=== PATIENT | male | born 1955 | race Caucasian/White ===

== ENCOUNTER → 2025-02-07 10:05 | Outpatient (CLI) | payer MEDICARE, SELFPAY ==
--- NOTE | ~2025-02-07 | XR_ITS ---
EXAM/ PROCEDURE: XR hip LT min 2V - 02/07/2025 10:20 CDT HISTORY: 69 years old Male with M25.552 - Pain in left hip COMPARISON: None available TECHNIQUE: Two view(s) FINDINGS/ IMPRESSION: There are no fractures or dislocations.Joint space narrowing, subchondral sclerosis, subchondral cyst formation and osteophyte formation, compatible with moderate osteoarthritis. Reviewed, dictated and finalized at location A.
--- NOTE | ~2025-02-07 | XR_ITS ---
XR lumbar spine min 4V 02/07/2025 10:38 Indication: Low back pain. Sciatica. Procedure: 5 views lumbar spine Comparison: No prior studies for comparison. Findings: Vertebral body heights are maintained. There is facet hypertrophy at L3-4, L4-5 and L5-S1. There is grade 1 degenerative spondylolisthesis at L4-5. No fracture, subluxation or dislocation. Lev oscoliosis centered at L2-3. There is disc narrowing at L3-4 through L5-S1. Impression: 1: Moderate lumbar spondylosis. Reviewed, dictated and finalized at location A. Impression: 1: Moderate lumbar spondylosis.
--- OUTSIDE RECORDS SUMMARY | 2025-02-07 10:09 | XMS_ITS | Continuity of Care Document ---
Author Organization [facility] Address [address] [place] [address] Phone Care Team Providers Care Cash Management Clerk Name Role Phone Cristin DUBOIS MD, Saji Unavailable Unavaila ble Allergies, Adverse Reactions, Alerts Substance Reaction Status Criticality No Known Allergies Active No Inform ation Procedures Procedure Date X-ray exam knee, 4+ views Office/outpatient visit,[facility] 2022 Asp/inject major joint or bursa w/o US g uidance Kenalog 40mg/mL Advance Directives Directive Yes / No Effective Date File Name No Information Encounters Encounter Description Practice Location Reason(s) For Visit Diagnoses Date Provider Providers Copied on Encounter Office/outpat ient visit,[facility] [place] [facility], [address], [id number], [place] [phone] [facility] [facility] left knee (chief complaint) Pain in left knee 3 Cristin Jewell er. [address] [facility] [facility] [address], [place], [place], [id number] , [place]. tel: [phone] Referring Provider: Saji Amaral MD D, [address] [facility] [address], [place], [address]. tel:[phone] Family History Family Member Type Diagnosis Age At Onset Father Problem (finding) Heart Disease Mother Problem (finding) Cancer, unknown Sister Problem (finding) Cancer, unknown Immunizations Vaccine Date Status Comments influenza, injectable, quadrivalent, (3 years or older) administered Note: patient denies ; Source: Source Unspecified Payers Payer name Insurance type Covered constitution party ID Praveen Michelle (s) Medicare CI [id number] Social History Type Description Quantity Date Captured Comments Alcohol Use Details Unknown Caffeine Use Details Unknown Tobacco Use Status No Information Smoking Status Never smoker Non-Smoking Tobacco Use Details : No Details Available : No Details Available Sex Male Vital Signs Date / Time: Height [...] he was doing some box jumping, at [employer]. This aggravated his knee and he developed increased swelling. Pain is worse with walking and open chain exercises. He is also been mountain biking and fell off his bike sustaining some further damage to his knee. Pain is better with elevation ice and sldo-rig-emdojhn medication. He has been treated with bracing [...] exam knee, 4+ views LT knee ordered Appointment Anjel Rhodes ORDER MAD E BOOKED History Of Present Illness Encounter Date Complaint [...] he was doing some box jumping, at [employer]. This aggravated his knee and he developed increased swelling. Pain is worse with walking and open chain exercises. He is also been mountain biking and fell off his bike sustaining some further damage to his knee. Pain is better with elevation ice and pdyi-fof-tacglmd medication. He has been treated with bracing [...]
== END ==
PROVIDERS: PCP Family Medicine; Visit Provider Family Medicine
DX: M25.552 Pain in left hip (principal); M47.896 Other spondylosis, lumbar region
CPT/HCPCS: 72110; 73502

== ENCOUNTER 2025-05-02 09:00 | Outpatient (RCR) | payer MEDICARE, SELFPAY ==
--- NOTE | 2025-04-06 08:57 | OPREHPOC ---
Outpatient Therapy Plan of Care This is a Multidisciplinary Plan of Care that may contain components documented by all disciplines (PT, OT, and ST.) PT Problem 1 PT Problem #1 Knowledge Deficit PT Goal 1 Goal / Goal Update Patient to demonstrate independence with HEP for improved self-reliance of symptom management. Target Visit 4 PT Problem 2 PT Problem #2 Pain PT Goal 1 Goal / Goal Update Patient to decrease subjective reports of pain to <3/10 for 2 consecutive weeks for improved ADL tolerance. Target Visit 8 PT Problem 3 PT Problem #3 Impaired Strength PT Goal 1 Goal / Goal Update Patient to demonstrate L hip ABD strength >=5/5 without pain provocation for improved functional stability required for ADLs. Target Visit 8 PT Problem 4 PT Problem #4 Impaired Range of Motion PT Goal 1 Goal / Goal Update Pt to demonstrate an increase of L hip combined AROM of WFL to improve LE dressing to don/doff shoes/socks. Target Visit 8 PT Problem 5 PT Problem #5 Impaired Endurance PT Goal 1 Goal / Goal Update Patient to improve distance ambulated during 6MWT from 1350 feet to 1500 feet to demonstrate an improvement in ADL endurance. Target Visit 8
--- NOTE | 2025-04-06 08:57 | PTOPEVAL1 ---
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 Pt reports symptoms started to get worse when he moved to [place] with walking in the sand. He is now returning to [place] and was helping renovate a home. He was working 10 -14 hours a day and it got to the point he was dragging his L foot. It was giving out on him and he went to the see the MD. He received a cortisone injection 2 weeks ago and is feeling a little better. he has also cut down on his activity level . he was instructed to use a cane to off weight his joint but is not ready for that. he thinks his hip muscles are feeling weaker over the last 2 months. Sxs made worse with: L LE dressing, walking more than 1 block, squatting Sxs improved with: ice, cortisone injection, doxycycline CLOF: decreased standing and walking tolerance, L LE dressing PLOF: standing/walking >8 hrs/day, biking 10 miles Reported Pain Level Pain Score 0: Self Report Assessment PT Clinical Summary Pt is a 69 year old male who presents to physical therapy with a primary complaint of L hip pain. Pt demonstrates mild strength deficits in the L hip, pain with prolonged walking and standing, impaired lower body dressing, decreased mobility, decreased endurance, abnormal posture, gait deficit, and decreased flexibility that limit their ability to perform ADLs. Pt will benefit from skilled physical therapy to address the above listed deficits and return to PLOF. HEP instructed and written handout provided, EX tolerated well with no adverse effects to note post-session. Pt was educated on importance of adherence to HEP. Pt was also educated on anatomy, prognosis, home modalities, and PT POC. Plan of Care Interventions Aquatic Therapy,Electrical Stimulation,Gait Training,Hot Pack/Cold Pack,Manual Therapy, Mechanical Traction,Neuro Re-education,Patient/ Caregiver Education,Therapeutic Activities, Therapeutic Exercise,Self-Care/Home Management, Ultrasound PT Services Indicated Yes Treatment Frequency and 1-2x/wk for 8 sessions Duration These treatments will address the objective and functional deficits as defined above. The patient will be advanced safely and appropriately in order for the patient to progress towards his/her prior level of function. Additional exercises will be introduced and as well as a comprehensive home exercise program upon discharge, if needed, ?to ensure carryover of functional gains achieved in the clinic. This treatment plan has been reviewed and agreement upon by the patient.
--- NOTE | 2025-05-16 09:34 | PCPTNOTE ---
Patient no showed to appointment. Therapist called and left voicemail to attempt to reschedule.
== END 2025-07-05 23:59 | disposition home or self-care (01) ==
LOC: ANHGOSHPT 09:00
PROVIDERS: PCP Family Medicine; Visit Provider Orthopaedic Surgery
DX: M47.816 Spondylosis without myelopathy or radiculopathy, lumbar region (principal); M16.12 Unilateral primary osteoarthritis, left hip
CPT/HCPCS: 97110; 97140; 97161; 97530

== ENCOUNTER 2025-05-25 08:24 | Outpatient (CLI) | payer MEDICARE, SELFPAY ==
--- OUTSIDE RECORDS SUMMARY | 2023-06-08 05:45 | XMS_ITS | Continuity of Care Document ---
Author Organization [facility] Address [address] [place] [address] Phone Care Team Providers Care Registered Respiratory Therapist Name Role Phone Cristin DUBOIS MD, Saji Unavailable Unavaila ble Allergies, Adverse Reactions, Alerts Substance Reaction Status Criticality No Known Allergies Active No Inform ation Procedures Procedure Date X-ray exam knee, 4+ views Office/outpatient visit,[facility] 2022 Asp/inject major joint or bursa w/o US g uidance Kenalog 40mg/mL Advance Directives Directive Yes / No Effective Date File Name No Information Encounters Encounter Description Practice Location Reason(s) For Visit Diagnoses Date Provider Providers Copied on Encounter Office/outpat ient visit,[facility], [facility] [place] [facility] [place] [facility], [address], [id number], [place] [phone] [facility] [place] [facility] left knee (chief complaint) Pain in left knee 3 Cristin Jewell er. [address] [facility] [facility], [place], [place], [id number] , [place]. tel: [phone] Referring Provider: Saji Amaral MD D, [address] [facility] [address], [place], [address]. tel:[phone] Family History Family Member Type Diagnosis Age At Onset Father Problem (finding) Heart Disease Mother Problem (finding) Cancer, unknown Sister Problem (finding) Cancer, unknown Immunizations Vaccine Date Status Comments influenza, injectable, quadrivalent, (3 years or older) administered Note: patient denies ; Source: Source Unspecified Payers Payer name Insurance type Covered constitution party ID Praveen Michelle (s) Medicare CI [id number] Social History Type Description Quantity Date Captured Comments Alcohol Use Details Unknown Caffeine Use Details Unknown Tobacco Use Status No Information Smoking Status Never smoker Non-Smoking Tobacco Use Details : No Details Available : No Details Available Sex Male Gender Identity Male Vital Signs Date / Time: Height Weight BMI Pulse Rate Blood Pressure Temperature Respiratory Rate Body Surface Area Head Circumference Head Circ. Percentile Wt./Callum. Percentile BMI percentile Pulse Ox Inhaled Ox 12:48 PM 69.00 in 113.398 kg (250.00 lbs) 36.9 2 kg/m harshal (2) Chief Complaint And Reason For Visit From encounter dated '06/08/2023 11:45'. left knee (chief complaint). Description: Anjel is a 67 year-old male who presents to the office for evaluation of left knee pain. He is 5 foot 9 250 pounds. He injured his left knee in August 2022. Currently pain as a 6 out of 10 it is sharp and stabbing. Pain is medial he has decreased motion and night pain popping and swelling. He does not have any mechanical locking or catching. He reports that his knee had been doing well until he was doing some box jumping, at [employer]. This aggravated his knee and he developed increased swelling. Pain is worse with walking and open chain exercises. He is also been mountain biking and fell off his bike sustaining some further damage to his knee. Pain is better with elevation ice and zimy-jmk-vtbzdba medication. He has been treated with bracing cortisone injections MRI and physical therapy. He is a non-smoker. He has previously undergone knee surgery. 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 He is 5 foot 9 250 pounds. He injured his left knee in August 2022. Currently pain as a 6 out of 10 it is sharp and stabbing. Pain is medial he has decreased motion and night pain popping and swelling. He does not have any mechanical locking or catching. He reports that his knee had been doing well until he was doing some box jumping, at [employer]. This aggravated his knee and he developed increased swelling. Pain is worse with walking and open chain exercises. He is also been mountain biking and fell off his bike sustaining some further damage to his knee. Pain is better with elevation ice and ugfw-awl-mzxswcd medication. He has been treated with bracing cortisone injections MRI and physical therapy. He is a non-smoker. He has previously undergone knee surgery. 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 The patient's left knee was prepped and draped using Betadine and alcohol. A 22-gauge syringe was used to introduce 40 mg of Kenalog and 3 cc of lidocaine through anterior lateral portal. Patient tolerated this procedure well. A sterile dressing was applied. There were no complications. Related to Pain in left knee Assessments Type Assessment Date assessment Pain in left knee impression Plain radiographs re viewed with the patient. Diagnosis of moderate arthritis was reviewed. I discussed treatment plans. Discussed that there is a meniscus tear in the setting of moderate arthritic changes I believe it is his best interest to manage his knee as an arthritic rather than isolated meniscus tear. Discussed the management as an isolated meniscus tear would likely lead to reoperation and poor overall satisfaction. Patient acknowledged understanding of this.1 weight loss -- currently elevated BMI2. Activity program with low-impact exercise3. Oral anti-inflammatories4. Bracing5. Injections consisting of cortisone or Visco supplement.Patient understands arthritis is a progressive condition and may require surgical treatment in the future. Care plan was discussed and questions were answered. Patient Care Teams Name Effective Dates (start - stop) Status Members No Information
--- NOTE | 2025-05-25 | ECG_ITS ---
Test Date: 2025-05-25 08:42:39 Measurements Intervals [place] Rate: 64 P: 52 LA: 174 QRS: -30 QRSD: 92 T: 33 QT: 410 QTc: 426 Interpretive Statements SINUS RHYTHM BORDERLINE LEFT AXIS DEVIATION [QRS AXIS < -20] NONSPECIFIC T-WAVE ABNORMALITY No previous ECG available for comparison Electronically Signed On 05-25-2025 09:04:41 BALER by Norman Fraga M.D.
--- OUTSIDE RECORDS SUMMARY | 2025-05-25 17:15 | XMS_ITS | Clinical Summary ---
Author Organization [facility] D Address [address] [place] [address] Care Team Providers Care Banquet Bartender Name Role Phone Evaristo Avery MD Primary Care Provider [phone] Allergies No known active allergies Encounters Date Type Department Care Team Description 03/07/2025 10:35 AM CDT - 03/07/2025 11:59 PM CDT Hospital Encounter [facility] [id number] [place] [address] Amaya Leonard Md Pain in left hip; Other chronic pain Discharge Disposition: Discharge to home or self care from Last 3 Months Surgical History Surgery Date Site/Laterality Comments FL FLUORO GUIDED INJECTION HIP LEFT 03/07/2025 Left Social History Tobacco Use Types Packs/Day Years Used Date Smoking Tobacco: Never Assessed Sex and Gender Information Value Date Recorded Sex Assigned at Not on file Legal Sex Male 7:12 PM PERSONAL CARE ATTENDANT Gender Identity Not on file Sexual Orientation Not on file Last Filed Vital Signs Vital Sign Reading Time Taken Comments Blood Pressure 141/76 08/22/2019 10:33 AM PERSONAL CARE ATTENDANT Pulse 69 08/22/2019 10:33 AM PERSONAL CARE ATTENDANT Temperature 37.1 C (98.8 F) 08/22/2019 10:33 AM PERSONAL CARE ATTENDANT Respiratory Rate - - Oxygen Saturation 97% 08/22/2019 10:33 AM PERSONAL CARE ATTENDANT Inhaled Oxygen Concentration - - Weight 114 kg (251 lb 5.2 oz) 08/22/2019 10:33 A M PERSONAL CARE ATTENDANT Height 175.3 cm (5' 9) 08/22/2019 10:33 AM PERSONAL CARE ATTENDANT Body Mass Index 37.11 08/22/2019 10:33 AM PERSONAL CARE ATTENDANT Plan of Treatment Health Maintenance Due Date Last Done Comments Colon Cancer Screening-Colonoscopy 1955 Depression Screening 1955 Fall Risk Assessment 1955 Hepatitis C Screening 1955 Prostate Cancer Screening-PSA 1955 DTaP/Tdap/Td Vaccine (1 - Tdap) 1968 Hepatitis B Screening 12/05/1975 Pneumococcal vaccine 65+ (1 of 1 - PCV) 12/05/2007 Zoster Vaccine (1 of 2) 12/05/2007 Abdominal Aortic Aneurysm (AAA) Screen 2022 Well Visit 65+ 2022 Influenza Vaccine (#1) 2025 Procedures Procedure Name Priority Date/Time Associated Diagnosis Comments FL FLUORO GUIDED INJECTION HIP LEFT Schedule JULIET, Read JULIET (Appt Today, Awaiting Results) 03/07/2025 11:09 AM CDT Pain in left hip Other chronic pain CT ABDOMEN PELVIS WO CONTRAST 08/22/2019 12:00 AM PERSONAL CARE ATTENDANT from Last 3 Months or Most Recently Relevant to Health Maintenance Results * FL Fluoro Guided Injection Hip Left (03/07/2025 11:09 AM CDT) Anatomical Region Laterality Modality Hip Left Computed Radiogr aphy 03/07/2025 11:1 1 AM CDT Impressions 03/07/2025 11:11 AM CDT Fluoroscopic guided steroid injection, hip joint. Electronically signed by: Alex Trinidad M.D. Narrative 03/07/2025 11:11 AM CDT EXAMINATION: FL FLUORO GUIDED INJECTION HIP LEFT DATE: 03/07/2025 11:00 HISTORY: pain in left hip FINDINGS: Risks and benefits of the procedure were discussed with the patient and informed consent was obtained. The patient's groin was prepped and draped in the usual sterile fashion. Lidocaine was used to anesthetize the skin and subcutaneous tissues. Under fluoroscopic guidance, a needle was advanced into the hip joint. Contrast was injected to verify placement in the joint. 80 mg of Depo-Medrol were injected into the hip joint. The needle was removed and a Band-Aid was applied. The patient tolerated the procedure well with no immediate complications. Procedure Note Alex Trinidad MD - 03/07/2025 EXAMINATION: FL FLUORO GUIDED INJECTION HIP LEFT DATE: 03/07/2025 11:00 HISTORY: pain in left hip FINDINGS: Risks and benefits of the procedure were discussed with the patient and informed consent was obtained. The patient's groin was prepped and draped in the usual sterile fashion. Lidocaine was used to anesthetize the skin and subcutaneous tissues. Under fluoroscopic guidance, a needle was advanced into the hip joint. Contrast was injected to verify placement in the joint. 80 mg of Depo-Medrol were injected into the hip joint. The needle was removed and a Band-Aid was applied. The patient tolerated the procedure well with no immediate complications. IMPRESSION: Fluoroscopic guided steroid injection, hip joint. Electronically signed by: Alex Trinidad M.D. Aj Avila MD IMG FLUOROSCOPY PROCEDURES Fi nal Result * CT Abdomen Pelvis WO Contrast (08/22/2019 12:00 AM PERSONAL CARE ATTENDANT) Anatomical Region Laterality Modality Body N/A Computed Tomogra phy 08/22/2019 11:1 3 AM PERSONAL CARE ATTENDANT Narrative 08/22/2019 11:19 AM PERSONAL CARE ATTENDANT Patient Name: ANJEL RHODES Franky Ordering Dr: Radha Putnam PA-C, D.O.B: 1955 Exam Date: 08/22/19 0000 Age: 63 Sex: Male MR#: [id number] Loc: RADIOLOGY REPORT Order #[id number] CT Scan CT Abd/Pelvis WO IV Contrast Signed EXAM DESCRIPTION: CT Abd/Pelvis WO IV Contrast REASON FOR STUDY: Left flank pain. Low abdominal pain. Symptoms since 4 a.m. this morning. TECHNIQUE: CT scan of the abdomen and pelvis performed without intravenous and without oral contrast using helical scanning technique. Reconstructed coronal and sagittal MPR images reviewed. All images stored on PACS. Automated exposure control was used as a dose optimization technique for this examination. COMPARISON: None available. FINDINGS: The sensitivity for detection of visceral lesions is diminished without the use of intravenous contrast. LOWER CHEST: Lung bases are clear. No pleural effusion. Imaged portions of the heart demonstrate atherosclerotic calcifications in the coronary arteries. No pericardial effusion. LIVER: The liver is normal in size. No focal lesions are seen on this noncontrast study. GALLBLADDER: Surgically absent. BILE DUCTS: No intrahepatic or extrahepatic ductal dilatation. SPLEEN: Normal size. No focal lesions. PANCREAS: Pancreas has a normal appearance. No focal lesions or inflammatory changes identified. ADRENALS: Normal. KIDNEYS/URINARY TRACT: Kidneys are normal in size. The left kidney demonstrates slightly lower parenchymal attenuation on the right kidney, possibly secondary to parenchymal edema. Mild left perinephric edema is also noted. Mild left hydronephrosis is noted secondary to a 4 mm stone in the proximal left ureter, best seen on axial image 85. A 1 mm nonobstructing stone remains in a left renal calyx, axial image 63. There is a single nonobstructing stone in the right kidney on axial image number 74, measuring approximately 4 mm. There are multiple right-sided renal cysts, the largest located in the right renal sinus, measuring 3 cm in greatest diameter. The urinary bladder is mostly decompressed, and otherwise unremarkable. GI: The stomach has a normal appearance. The small bowel and colon are normal in caliber, demonstrating no signs of obstruction or inflammation. Normal appendix. PERITONEUM: No ascites or free air. RETROPERITONEUM: Mild left perinephric edema. No lymphadenopathy in the abdomen or pelvis. REPRODUCTIVE: Coarse calcifications in the prostate. Seminal vesicles are unremarkable. VASCULATURE: The abdominal aorta is atherosclerotic, but normal in caliber. No significant vascular abnormalities are seen on this noncontrast examination. MUSCULOSKELETAL: Bone windows demonstrate no suspicious lytic or blastic lesions. 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 OTHER: There is a small umbilical hernia, containing a short segment of nonobstructed/non inflamed small bowel. IMPRESSION: 1. Mild left hydroureteronephrosis secondary to a 4 mm stone in the proximal left ureter. There is also secondary mild left renal parenchymal and perinephric edema. 2. Nonobstructing stones in both kidneys, measuring up to 4 mm on the right, and 1 mm on the left. 3. Multiple right-sided renal cysts, the largest measuring 3 mm, and located in the right renal sinus. 4. Small umbilical hernia, containing a short segment of nonobstructed/non inflamed small bowel. 5. Other incidental findings as described above. THIS IS AN ELECTRONICALLY VERIFIED FINAL REPORT 08/22/2019 11:19 AM - Electronically signed by Jarett Parish M.D. RL: BRENDA Report ID: [id number] Reading Location: [place] [address] REPORT ELECTRONICALLY SIGNED IN OTHER VENDOR SYSTEM Resulting Agency Comment E Procedure Note Jarett Castro MD - 08/22/2019 Patient Name: ANJEL RHODES Dr: Radha Putnam PA-C, D.O.B: 1955 Exam Date: 08/22/19 0000 Age: 63 Sex: Male MR#: [id number] Loc: RADIOLOGY REPORT Order #[id number] CT Scan CT Abd/Pelvis WO IV Contrast Signed EXAM DESCRIPTION: CT Abd/Pelvis WO IV Contrast REASON FOR STUDY: Left flank pain. Low abdominal pain. Symptoms since4 a.m. this morning. TECHNIQUE: CT scan of the abdomen and pelvis performed withoutintravenous and without oral contrast using helical scanning technique. Reconstructed coronal and sagittal MPR images reviewed. All images stored on PACS. Automated exposure control was used as a dose optimization technique forthis examination. COMPARISON: None available. FINDINGS: The sensitivity for detection of visceral lesions is diminished withoutthe use of intravenous contrast. LOWER CHEST: Lung bases are clear. No pleural effusion. Imaged portionsof the heart demonstrate atherosclerotic calcifications in the coronaryarteries. No pericardial effusion. LIVER: The liver is normal in size. No focal lesions are seen on this noncontrast study. GALLBLADDER: Surgically absent. BILE DUCTS: No intrahepatic or extrahepatic ductal dilatation. SPLEEN: Normal size. No focal lesions. PANCREAS: Pancreas has a normal appearance. No focal lesions orinflammatory changes identified. ADRENALS: Normal. KIDNEYS/URINARY TRACT: Kidneys are normal in size. The left kidney demonstrates slightly lower parenchymal attenuation on the right kidney, possibly secondary to parenchymal edema. Mild left perinephric edema isalso noted. Mild left hydronephrosis is noted secondary to a 4 mm stone inthe proximal left ureter, best seen on axial image 85. A 1 mm nonobstructing stone remains in a left renal calyx, axial image 63. There is a single nonobstructing stone in the right kidney on axial image number 74,measuring approximately 4 mm. There are multiple right-sided renal cysts, thelargest located in the right renal sinus, measuring 3 cm in greatest diameter.The urinary bladder is mostly decompressed, and otherwise unremarkable. GI: The stomach has a normal appearance. The small bowel and colon arenormal in caliber, demonstrating no signs of obstruction or inflammation.Normal appendix. PERITONEUM: No ascites or free air. RETROPERITONEUM: Mild left perinephric edema. No lymphadenopathy in the abdomen or pelvis. REPRODUCTIVE: Coarse calcifications in the prostate. Seminal vesiclesare unremarkable. VASCULATURE: The abdominal aorta is atherosclerotic, but normal incaliber. No significant vascular abnormalities are seen on this noncontrastexamination. MUSCULOSKELETAL: Bone windows demonstrate no suspicious lytic or blastic lesions. 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 OTHER: There is a small umbilical hernia, containing a short segment of nonobstructed/non inflamed small bowel. IMPRESSION: 1. Mild left hydroureteronephrosis secondary to a 4 mm stone in theproximal left ureter. There is also secondary mild left renal parenchymal and perinephric edema. 2. Nonobstructing stones in both kidneys, measuring up to 4 mm on theright, and 1 mm on the left. 3. Multiple right-sided renal cysts, the largest measuring 3 mm, andlocated in the right renal sinus. 4. Small umbilical hernia, containing a short segment ofnonobstructed/non inflamed small bowel. 5. Other incidental findings as described above. THIS IS AN ELECTRONICALLY VERIFIED FINAL REPORT 08/22/2019 11:19 AM - Electronically signed by Jarett Parish M.D. RL: BRENDA Report ID: [id number] Reading Location: [id number] REPORT ELECTRONICALLY SIGNED IN OTHER VENDOR SYSTEM Radha MOSS IMLois CT PROCEDURES Final Resul t from Last 3 Months or Most Recently Relevant to Health Maintenance Insurance MEDICARE AET MEDICARE Care Teams Banquet Bartender Relationship Specialty Start Date End Date Evaristo Avery MD [address] [address] PCP - General 03/10/17
--- OUTSIDE RECORDS SUMMARY | 2025-05-25 17:15 | XMS_ITS | Encounter Summary ---
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 us Historical Provider Final Res ult documented in this encounter Visit Diagnoses Not on filedocumented in this encounter Care Teams Eligibility Examiner Relationship Specialty Start Date End Date Evaristo Avery MD [address] [address] PCP - General 03/10/17 documented as of this encounter
== END 2025-05-25 08:25 | disposition home or self-care (01) ==
PROVIDERS: PCP Family Medicine; Visit Provider Orthopaedic Surgery
DX: Z01.810 Encounter for preprocedural cardiovascular examination (principal); R94.31 Abnormal electrocardiogram [ECG] [EKG]
CPT/HCPCS: 93005